=== PATIENT | male | born 1940 | race Caucasian/White ===

== ENCOUNTER 2017-10-10 16:21 | Inpatient (IN) | payer OTHER, MEDICAID ==
[~2017-10-10] VITALS: Ht 177.8 cm; Wt 80.7 kg
[2017-10-10] MEDS ORDERED: VANCOMYCIN IV 1,000 MG in IV DEXTROSE 5% 250 ML IV ONE (16:30)
[2017-10-10] MEDS ORDERED: METRONIDAZOLE 500 MG/NS 100ML 100 ML IV ONE ×2 (16:30→16:41)
[2017-10-10] MEDS ORDERED: IV NORMAL SALINE 1000 ML BAG IV ONE (16:30)
[2017-10-10] MEDS ORDERED: CEFEPIME HCL 1 G in IV DEXTROSE 5% 50 ML IV ONE (16:30)
[2017-10-10] MEDS ORDERED: CEFEPIME HCL 1 G VIAL ONE (16:40)
[2017-10-10] MEDS ORDERED: VANCOMYCIN IV 200 ML ONE (16:41)
[2017-10-10 17:09] LABS: BASOPHILS # (AUTO) 0.1 K/uL (0.0-8.0); BASOPHILS % (AUTO) 0.4 % (0.0-2.0); EOSINOPHILS # (AUTO) 0.8 K/uL (0.0-0.7); EOSINOPHILS % (AUTO) 4.5 % (0.0-7.0); HEMATOCRIT 39.3 % (36.7-47.1); HEMOGLOBIN 12.9 g/dL (12.5-16.3); LYMPHOCYTES # (AUTO) 3.8 K/uL (20.0-40.0); MEAN CORPUSCULAR HEMOGLOBIN 28.6 uug (23.8-33.4); MEAN CORPUSCULAR HGB CONC 33 g/dL (32.5-36.3); MEAN CORPUSCULAR VOLUME 87.2 fL (73.0-96.2); MONOCYTES # (AUTO) 1.6 K/uL (2.0-10.0); MONOCYTES % (AUTO) 9.1 % (0.0-11.0); NEUTROPHILS # (AUTO) 11.7 K/uL (1.8-8.9); PLATELET COUNT (AUTO) 222 K/uL (152-348)
[2017-10-10 17:32] LABS: CARBON DIOXIDE 33 mmol/L (21-32); CHLORIDE 99 mmol/L (98-107); CREATININE 1.2 mg/dL (0.6-1.3); GLUCOSE 100 mg/dL (74-106); UREA NITROGEN, BLOOD 12 mg/dL (7-18)
[2017-10-10 17:37] LABS: POTASSIUM 2.7 mmol/L (3.5-5.1)
[2017-10-10 17:45] LABS: ALANINE AMINOTRANSFERASE 19 U/L (16-63); ALKALINE PHOSPHATASE 78 U/L (50-136); ASPARTATE AMINOTRANSFERASE 22 U/L (15-37); BILIRUBIN,DIRECT 0.2 mg/dL (0.0-0.2); BILIRUBIN,TOTAL 0.6 mg/dL (0.2-1.0); TOTAL PROTEIN, SERUM 7.9 g/dL (6.4-8.2)
[2017-10-10] MEDS ORDERED: TRIA80OI TP (17:59)
[2017-10-10] MEDS ORDERED: OXYC-133 PO (17:59)
[2017-10-10] MEDS ORDERED: ASPI81TA31 PO (17:59)
[2017-10-10] MEDS ORDERED: LOSA100T15 PO (17:59)
[2017-10-10] MEDS ORDERED: TRAM50TA2 PO (17:59)
[2017-10-10] MEDS ORDERED: SENN-167 PO (17:59)
[2017-10-10] MEDS ORDERED: DULO60CA45 PO (17:59)
[2017-10-10] MEDS ORDERED: ISOS30TA6 PO (17:59)
[2017-10-10] MEDS ORDERED: AMLO5TAB2 PO (17:59)
[2017-10-10] MEDS ORDERED: ATOR40TA PO (17:59)
[2017-10-10] MEDS ORDERED: GABA-536 PO (17:59)
[2017-10-10] MEDS ORDERED: POTASSIUM CHLORIDE 20 MEQ TAB.PRT.SR ONE (18:27)
[2017-10-10] MEDS ORDERED: ONDANSETRON 4 MG/2 ML VIAL IV PRN (18:30)
[2017-10-10] MEDS ORDERED: POTASSIUM CHLORIDE 20 MEQ TAB.PRT.SR PO ONE (18:30)
[2017-10-10] MEDS ORDERED: MAGNESIUM HYDROXIDE 30 ML LIQUID UDC PO PRN (18:30)
[2017-10-10 20:30] VITALS: BP 156/90
[2017-10-10] MEDS: GABAPENTIN 400 MG CAPSULE PO SCH (21:38)
[2017-10-11 06:13] VITALS: BP 156/75
[2017-10-11 06:40] LABS: CARBON DIOXIDE 31 mmol/L (21-32); CHLORIDE 104 mmol/L (98-107); CREATININE 1.1 mg/dL (0.6-1.3); GLUCOSE 102 mg/dL (74-106); MAGNESIUM 1.6 mg/dL (1.8-2.4); PHOSPHOROUS 3.4 mg/dL (2.5-4.9); POTASSIUM 3.2 mmol/L (3.5-5.1); UREA NITROGEN, BLOOD 9 mg/dL (7-18)
[2017-10-11 06:46] LABS: BASOPHILS % (AUTO) 0.2 % (0.0-2.0); EOSINOPHILS # (AUTO) 1.2 K/uL (0.0-0.7); EOSINOPHILS % (AUTO) 6.6 % (0.0-7.0); HEMATOCRIT 36.7 % (36.7-47.1); HEMOGLOBIN 12.1 g/dL (12.5-16.3); LYMPHOCYTES # (AUTO) 2.7 K/uL (20.0-40.0); LYMPHOCYTES % (AUTO) 15.3 % (20.5-51.5); MEAN CORPUSCULAR HEMOGLOBIN 28.6 uug (23.8-33.4); MEAN CORPUSCULAR HGB CONC 33 g/dL (32.5-36.3); MEAN CORPUSCULAR VOLUME 86.3 fL (73.0-96.2); MONOCYTES # (AUTO) 1.7 K/uL (2.0-10.0); MONOCYTES % (AUTO) 9.7 % (0.0-11.0); NEUTROPHILS # (AUTO) 11.8 K/uL (1.8-8.9); NEUTROPHILS % (AUTO) 68.2 % (38.5-71.5); PLATELET COUNT (AUTO) 191 K/uL (152-348); RED BLOOD CELL COUNT(AUTO) 4.25 MIL/uL (4.06-5.63); WHITE BLOOD COUNT (AUTO) 17.4 K/uL (3.6-10.2)
[2017-10-11] MEDS: SENNOSIDES 1 TABLET PO SCH (08:49)
[2017-10-11] MEDS: TRAMADOL HCL 50 MG TABLET PO SCH ×3 (08:50→17:19)
[2017-10-11] MEDS: ASPIRIN 81 MG TAB.CHEW PO SCH (08:50)
[2017-10-11] MEDS: LOSARTAN POTASSIUM 50 MG TABLET PO SCH (08:50)
[2017-10-11] MEDS: AMLODIPINE 5 MG TABLET PO SCH (08:50)
[2017-10-11] MEDS: GABAPENTIN 400 MG CAPSULE PO SCH ×4 (08:50→20:52)
[2017-10-11] MEDS: ISOSORBIDE MONONITRATE 30 MG TAB.SR.24H PO SCH (08:51)
[2017-10-11] MEDS: DULOXETINE 60 MG CAPSULE.DR PO SCH (08:51)
[2017-10-11] MEDS: VANCOMYCIN IV 1 G in PREMIXED 0 EACH IV SCH ×2 (10:41→23:28)
[2017-10-11 11:01] VITALS: BP 148/82
[2017-10-11 11:56] LABS: *BILIRUBIN,URIN NEGATIVE (NEGATIVE); *BLOOD, URINE Trace-lysed (NEGATIVE); *CLARITY,URINE CLEAR (CLEAR); *COLOR,URINE YELLOW (YELLOW); *KETONES,URINE NEGATIVE (NEGATIVE); *PROTEIN,URINE NEGATIVE (NEGATIVE); LEUKOCYTE ESTERASE ,URINE NEGATIVE (NEGATIVE); NITRITE, URINE NEGATIVE (NEGATIVE); UGLUCOSE NEGATIVE (NEGATIVE)
[2017-10-11 12:03] LABS: BACTERIA,URINE FEW /HPF (NONE SEEN); RBC,URINE 0-3 /HPF (0-3); SQUAMOUS EPITHELIAL CELL,UR FEW /HPF (NONE SEEN)
[2017-10-11] MEDS ORDERED: POTASSIUM CHLORIDE 50 ML IV SCH (13:00)
[2017-10-11] MEDS ORDERED: OXYCODONE/APAP 5-325 MG TABLET PO PRN (14:00)
[2017-10-11] MEDS ORDERED: MAGNESIUM SULFATE/D5W 100 ML IV SCH (14:30)
[2017-10-11] MEDS: POTASSIUM CHLORIDE 10 MEQ in IV NORMAL SALINE 50 ML IV SCH ×4 (14:56→18:36)
[2017-10-11 15:17] VITALS: BP 128/64
[2017-10-11] MEDS: ATORVASTATIN 40 MG TABLET PO SCH (17:19)
[2017-10-11] MEDS: MAGNESIUM SULFATE/D5W 100 ML IV SCH ×2 (19:59→21:02)
[2017-10-12 05:08] VITALS: BP 148/79
[2017-10-12 07:47] LABS: CARBON DIOXIDE 31 mmol/L (21-32); CHLORIDE 104 mmol/L (98-107); CREATININE 1.1 mg/dL (0.6-1.3); GLUCOSE 99 mg/dL (74-106); MAGNESIUM 2.2 mg/dL (1.8-2.4); UREA NITROGEN, BLOOD 11 mg/dL (7-18)
[2017-10-12] MEDS: ASPIRIN 81 MG TAB.CHEW PO SCH (08:08)
[2017-10-12] MEDS: ISOSORBIDE MONONITRATE 30 MG TAB.SR.24H PO SCH (08:08)
[2017-10-12] MEDS: AMLODIPINE 5 MG TABLET PO SCH (08:08)
[2017-10-12] MEDS: SENNOSIDES 1 TABLET PO SCH (08:08)
[2017-10-12] MEDS: LOSARTAN POTASSIUM 50 MG TABLET PO SCH (08:08)
[2017-10-12] MEDS: DULOXETINE 60 MG CAPSULE.DR PO SCH (08:09)
[2017-10-12] MEDS: TRAMADOL HCL 50 MG TABLET PO SCH ×3 (08:09→17:00)
[2017-10-12] MEDS: GABAPENTIN 400 MG CAPSULE PO SCH ×4 (08:09→21:38)
[2017-10-12] MEDS ORDERED: POTASSIUM CHLORIDE 20 MEQ TAB.PRT.SR PO ONE (10:15)
[2017-10-12 10:37] LABS: BASOPHILS # (AUTO) 0.1 K/uL (0.0-8.0); BASOPHILS % (AUTO) 0.3 % (0.0-2.0); EOSINOPHILS # (AUTO) 1.8 K/uL (0.0-0.7); EOSINOPHILS % (AUTO) 10.2 % (0.0-7.0); HEMATOCRIT 35.5 % (36.7-47.1); HEMOGLOBIN 11.7 g/dL (12.5-16.3); LYMPHOCYTES % (AUTO) 16.8 % (20.5-51.5); MEAN CORPUSCULAR HEMOGLOBIN 28.6 uug (23.8-33.4); MEAN CORPUSCULAR HGB CONC 33 g/dL (32.5-36.3); MONOCYTES # (AUTO) 1.9 K/uL (2.0-10.0); MONOCYTES % (AUTO) 10.4 % (0.0-11.0); NEUTROPHILS # (AUTO) 11.2 K/uL (1.8-8.9); NEUTROPHILS % (AUTO) 62.3 % (38.5-71.5); PLATELET COUNT (AUTO) 198 K/uL (152-348); RED BLOOD CELL COUNT(AUTO) 4.08 MIL/uL (4.06-5.63); WHITE BLOOD COUNT (AUTO) 17.9 K/uL (3.6-10.2)
[2017-10-12 11:34] VITALS: BP 132/88
[2017-10-12] MEDS: PIPERACILLIN/TAZOBACTAM/D5W 50 ML IV SCH ×2 (13:45→19:54)
[2017-10-12] MEDS: PERMETHRIN 5% CREAM 60 GM TUBE TP ONE ×2 (14:00→18:00)
[2017-10-12] MEDS ORDERED: HYDROMORPHONE 1 MG/1 ML DISP.SYRIN IV PRN (14:00)
[2017-10-12] MEDS: VANCOMYCIN IV 1 G in PREMIXED 0 EACH IV SCH (14:00)
[2017-10-12] MEDS ORDERED: MORPHINE SULFATE 4 MG/1 ML DISP.SYRIN IV STA (14:01)
[2017-10-12] MEDS ORDERED: MORPHINE SULFATE 4 MG/1 ML DISP.SYRIN IV PRN (14:15)
[2017-10-12] MEDS ORDERED: LIDOCAINE 1%-EPI 1:100,000 20 ML VIAL TP ONE (14:30)
[2017-10-12] MEDS ORDERED: LORAZEPAM 1 MG TABLET PO PRN (14:45)
[2017-10-12] MEDS: ATORVASTATIN 40 MG TABLET PO SCH (17:53)
[2017-10-12 20:14] VITALS: BP 125/67
[2017-10-13] MEDS: PIPERACILLIN/TAZOBACTAM/D5W 50 ML IV SCH ×4 (01:35→20:16)
[2017-10-13] MEDS: VANCOMYCIN IV 1 G in PREMIXED 0 EACH IV SCH ×2 (04:30→17:52)
[2017-10-13 05:42] VITALS: BP 152/78
[2017-10-13] MEDS: PANTOPRAZOLE SODIUM 40 MG TABLET.DR PO SCH (06:29)
[2017-10-13 07:32] LABS: THYROID STIMULATING HORMONE 2.139 mIU/mL (0.358-3.740)
[2017-10-13 07:48] LABS: ALANINE AMINOTRANSFERASE 17 U/L (16-63); ALKALINE PHOSPHATASE 60 U/L (50-136); ASPARTATE AMINOTRANSFERASE 24 U/L (15-37); BASOPHILS # (AUTO) 0.1 K/uL (0.0-8.0); BASOPHILS % (AUTO) 0.5 % (0.0-2.0); BILIRUBIN,TOTAL 0.6 mg/dL (0.2-1.0); CARBON DIOXIDE 33 mmol/L (21-32); CHLORIDE 103 mmol/L (98-107); CHOLESTEROL 108 mg/dL (<200); CREATININE 1.1 mg/dL (0.6-1.3); EOSINOPHILS # (AUTO) 1.5 K/uL (0.0-0.7); EOSINOPHILS % (AUTO) 11.3 % (0.0-7.0); GLUCOSE 128 mg/dL (74-106); HDL CHOLESTEROL 33 mg/dL (40-60); HEMOGLOBIN 11.7 g/dL (12.5-16.3); LYMPHOCYTES # (AUTO) 2.7 K/uL (20.0-40.0); LYMPHOCYTES % (AUTO) 19.7 % (20.5-51.5); MEAN CORPUSCULAR HEMOGLOBIN 28.9 uug (23.8-33.4); MEAN CORPUSCULAR HGB CONC 33 g/dL (32.5-36.3); MEAN CORPUSCULAR VOLUME 86.5 fL (73.0-96.2); MONOCYTES # (AUTO) 1.2 K/uL (2.0-10.0); NEUTROPHILS # (AUTO) 8.1 K/uL (1.8-8.9); NEUTROPHILS % (AUTO) 59.5 % (38.5-71.5); PHOSPHOROUS 3.9 mg/dL (2.5-4.9); PLATELET COUNT (AUTO) 206 K/uL (152-348); POTASSIUM 3.6 mmol/L (3.5-5.1); RED BLOOD CELL COUNT(AUTO) 4.05 MIL/uL (4.06-5.63); TOTAL PROTEIN, SERUM 6.6 g/dL (6.4-8.2); TRIGLYCERIDES 89 MG/DL (30-150); UREA NITROGEN, BLOOD 11 mg/dL (7-18); WHITE BLOOD COUNT (AUTO) 13.7 K/uL (3.6-10.2)
[2017-10-13] MEDS: DULOXETINE 60 MG CAPSULE.DR PO SCH (08:57)
[2017-10-13] MEDS: SENNOSIDES 1 TABLET PO SCH (08:57)
[2017-10-13] MEDS: ASPIRIN 81 MG TAB.CHEW PO SCH (08:57)
[2017-10-13] MEDS: GABAPENTIN 400 MG CAPSULE PO SCH ×4 (08:58→20:16)
[2017-10-13] MEDS: TRAMADOL HCL 50 MG TABLET PO SCH ×3 (09:00→18:03)
[2017-10-13] MEDS: AMLODIPINE 5 MG TABLET PO SCH (09:01)
[2017-10-13] MEDS: LOSARTAN POTASSIUM 50 MG TABLET PO SCH (09:02)
[2017-10-13] MEDS: ISOSORBIDE MONONITRATE 30 MG TAB.SR.24H PO SCH (09:02)
[2017-10-13 11:24] VITALS: BP 108/70
[2017-10-13] MEDS ORDERED: LORAZEPAM 2 MG/1 ML VIAL IV PRN (12:00)
[2017-10-13 15:32] VITALS: BP 123/70
[2017-10-13] MEDS: ATORVASTATIN 40 MG TABLET PO SCH (17:52)
[2017-10-13 20:00] VITALS: BP 125/73
[2017-10-13] MEDS: LACTOBACILLUS RHAMNOSUS GG 1 EACH CAPSULE PO SCH (20:16)
[2017-10-14] MEDS: PIPERACILLIN/TAZOBACTAM/D5W 50 ML IV SCH ×4 (02:00→20:46)
[2017-10-14 06:00] VITALS: BP 119/62
[2017-10-14] MEDS: PANTOPRAZOLE SODIUM 40 MG TABLET.DR PO SCH (06:17)
[2017-10-14] MEDS: LACTOBACILLUS RHAMNOSUS GG 1 EACH CAPSULE PO SCH ×2 (08:57→20:46)
[2017-10-14] MEDS: SENNOSIDES 1 TABLET PO SCH (08:57)
[2017-10-14] MEDS: DULOXETINE 60 MG CAPSULE.DR PO SCH (08:57)
[2017-10-14] MEDS: GABAPENTIN 400 MG CAPSULE PO SCH ×4 (08:58→20:46)
[2017-10-14] MEDS: TRAMADOL HCL 50 MG TABLET PO SCH ×3 (08:59→17:08)
[2017-10-14] MEDS: VANCOMYCIN IV 1 G in PREMIXED 0 EACH IV SCH ×2 (08:59→22:53)
[2017-10-14] MEDS: LOSARTAN POTASSIUM 50 MG TABLET PO SCH (09:01)
[2017-10-14] MEDS: AMLODIPINE 5 MG TABLET PO SCH (09:01)
[2017-10-14] MEDS: ISOSORBIDE MONONITRATE 30 MG TAB.SR.24H PO SCH (09:02)
[2017-10-14] MEDS: ASPIRIN 81 MG TAB.CHEW PO SCH (09:02)
[2017-10-14 11:56] VITALS: BP 128/73
[2017-10-14] MEDS ORDERED: Oxycodone/Apap 5-325 Mg PO (15:13)
[2017-10-14] MEDS ORDERED: PIPE3.3711 IV (15:13)
[2017-10-14] MEDS ORDERED: TRIA15OI10 TP (15:13)
[2017-10-14] MEDS ORDERED: ACET325T53 PO (15:13)
[2017-10-14] MEDS ORDERED: RXVAN XX (15:13)
[2017-10-14] MEDS ORDERED: PANT40TA2 PO (15:13)
[2017-10-14] MEDS ORDERED: TRAM50TA2 PO (15:13)
[2017-10-14] MEDS ORDERED: LACT1CAP57 PO (15:13)
[2017-10-14] MEDS ORDERED: MAGN400O6 PO (15:13)
[2017-10-14] MEDS ORDERED: PERM60CR4 TP (15:29)
[2017-10-14 15:32] VITALS: BP 131/62
[2017-10-14] MEDS: ATORVASTATIN 40 MG TABLET PO SCH (17:11)
[2017-10-14 20:00] VITALS: BP 114/78
[2017-10-15] MEDS: PIPERACILLIN/TAZOBACTAM/D5W 50 ML IV SCH ×4 (00:45→18:39)
[2017-10-15 04:00] VITALS: BP 149/79
[2017-10-15] MEDS: PANTOPRAZOLE SODIUM 40 MG TABLET.DR PO SCH (06:16)
[2017-10-15 07:17] LABS: ALANINE AMINOTRANSFERASE 28 U/L (16-63); ALKALINE PHOSPHATASE 52 U/L (50-136); ASPARTATE AMINOTRANSFERASE 25 U/L (15-37); BILIRUBIN,TOTAL 0.4 mg/dL (0.2-1.0); CARBON DIOXIDE 28 mmol/L (21-32); CHLORIDE 107 mmol/L (98-107); CREATININE 1.1 mg/dL (0.6-1.3); GLUCOSE 100 mg/dL (74-106); PHOSPHOROUS 4.1 mg/dL (2.5-4.9); POTASSIUM 3.1 mmol/L (3.5-5.1); TOTAL PROTEIN, SERUM 6.9 g/dL (6.4-8.2); UREA NITROGEN, BLOOD 10 mg/dL (7-18)
[2017-10-15 07:20] LABS: BASOPHILS # (AUTO) 0.1 K/uL (0.0-8.0); BASOPHILS % (AUTO) 0.9 % (0.0-2.0); EOSINOPHILS # (AUTO) 1.5 K/uL (0.0-0.7); EOSINOPHILS % (AUTO) 12.1 % (0.0-7.0); HEMATOCRIT 34.7 % (36.7-47.1); HEMOGLOBIN 11.5 g/dL (12.5-16.3); LYMPHOCYTES # (AUTO) 3.5 K/uL (20.0-40.0); LYMPHOCYTES % (AUTO) 27.8 % (20.5-51.5); MEAN CORPUSCULAR HEMOGLOBIN 28.6 uug (23.8-33.4); MEAN CORPUSCULAR HGB CONC 33 g/dL (32.5-36.3); MONOCYTES # (AUTO) 1.1 K/uL (2.0-10.0); MONOCYTES % (AUTO) 8.6 % (0.0-11.0); NEUTROPHILS # (AUTO) 6.4 K/uL (1.8-8.9); NEUTROPHILS % (AUTO) 50.6 % (38.5-71.5); PLATELET COUNT (AUTO) 255 K/uL (152-348); RED BLOOD CELL COUNT(AUTO) 4.04 MIL/uL (4.06-5.63); WHITE BLOOD COUNT (AUTO) 12.6 K/uL (3.6-10.2)
[2017-10-15] MEDS: DULOXETINE 60 MG CAPSULE.DR PO SCH (08:36)
[2017-10-15] MEDS: SENNOSIDES 1 TABLET PO SCH (08:36)
[2017-10-15] MEDS: GABAPENTIN 400 MG CAPSULE PO SCH ×4 (08:36→20:50)
[2017-10-15] MEDS: LACTOBACILLUS RHAMNOSUS GG 1 EACH CAPSULE PO SCH ×2 (08:36→20:50)
[2017-10-15] MEDS: TRAMADOL HCL 50 MG TABLET PO SCH ×3 (08:37→17:07)
[2017-10-15] MEDS: ASPIRIN 81 MG TAB.CHEW PO SCH (08:38)
[2017-10-15] MEDS: ISOSORBIDE MONONITRATE 30 MG TAB.SR.24H PO SCH (08:44)
[2017-10-15] MEDS: LOSARTAN POTASSIUM 50 MG TABLET PO SCH (08:45)
[2017-10-15] MEDS: AMLODIPINE 5 MG TABLET PO SCH (08:45)
[2017-10-15] MEDS: VANCOMYCIN IV 1 G in PREMIXED 0 EACH IV SCH ×2 (10:29→22:02)
[2017-10-15] MEDS ORDERED: POTASSIUM CHLORIDE 20 MEQ TAB.PRT.SR PO ONE (10:45)
[2017-10-15 10:58] VITALS: BP 131/60
[2017-10-15 14:56] VITALS: BP 130/60
[2017-10-15] MEDS: ATORVASTATIN 40 MG TABLET PO SCH (17:07)
[2017-10-15 20:00] VITALS: BP 143/78
[2017-10-16] MEDS: PIPERACILLIN/TAZOBACTAM/D5W 50 ML IV SCH ×4 (01:05→20:06)
[2017-10-16 05:44] LABS: BASOPHILS # (AUTO) 0.1 K/uL (0.0-8.0); BASOPHILS % (AUTO) 0.9 % (0.0-2.0); EOSINOPHILS # (AUTO) 1.4 K/uL (0.0-0.7); EOSINOPHILS % (AUTO) 12.1 % (0.0-7.0); HEMATOCRIT 36.2 % (36.7-47.1); HEMOGLOBIN 11.9 g/dL (12.5-16.3); LYMPHOCYTES # (AUTO) 3.7 K/uL (20.0-40.0); LYMPHOCYTES % (AUTO) 31.6 % (20.5-51.5); MEAN CORPUSCULAR HEMOGLOBIN 28.3 uug (23.8-33.4); MEAN CORPUSCULAR HGB CONC 33 g/dL (32.5-36.3); MEAN CORPUSCULAR VOLUME 86.3 fL (73.0-96.2); MONOCYTES # (AUTO) 1.1 K/uL (2.0-10.0); MONOCYTES % (AUTO) 9.3 % (0.0-11.0); NEUTROPHILS # (AUTO) 5.4 K/uL (1.8-8.9); NEUTROPHILS % (AUTO) 46.1 % (38.5-71.5); PLATELET COUNT (AUTO) 262 K/uL (152-348); WHITE BLOOD COUNT (AUTO) 11.8 K/uL (3.6-10.2)
[2017-10-16 06:03] LABS: ALANINE AMINOTRANSFERASE 27 U/L (16-63); ALKALINE PHOSPHATASE 51 U/L (50-136); ASPARTATE AMINOTRANSFERASE 24 U/L (15-37); BILIRUBIN,TOTAL 0.4 mg/dL (0.2-1.0); CARBON DIOXIDE 29 mmol/L (21-32); CHLORIDE 104 mmol/L (98-107); CREATININE 1.1 mg/dL (0.6-1.3); GLUCOSE 91 mg/dL (74-106); PHOSPHOROUS 3.8 mg/dL (2.5-4.9); UREA NITROGEN, BLOOD 12 mg/dL (7-18)
[2017-10-16] MEDS: PANTOPRAZOLE SODIUM 40 MG TABLET.DR PO SCH (06:38)
[2017-10-16 06:46] VITALS: BP 158/83
[2017-10-16] MEDS: DULOXETINE 60 MG CAPSULE.DR PO SCH (08:50)
[2017-10-16] MEDS: GABAPENTIN 400 MG CAPSULE PO SCH ×4 (08:50→21:13)
[2017-10-16] MEDS: ASPIRIN 81 MG TAB.CHEW PO SCH (08:50)
[2017-10-16] MEDS: LACTOBACILLUS RHAMNOSUS GG 1 EACH CAPSULE PO SCH ×2 (08:50→21:13)
[2017-10-16] MEDS: ACETAMINOPHEN 325 MG TABLET PO PRN (08:50)
[2017-10-16] MEDS: AMLODIPINE 5 MG TABLET PO SCH (08:51)
[2017-10-16] MEDS: ISOSORBIDE MONONITRATE 30 MG TAB.SR.24H PO SCH (08:51)
[2017-10-16] MEDS: LOSARTAN POTASSIUM 50 MG TABLET PO SCH (08:51)
[2017-10-16] MEDS: Z GUARD REMEDY PASTE 57 GM TUBE TOP PRN (08:52)
[2017-10-16] MEDS: TRIAMCINOLONE ACET 0.025% OINT 15 GM TUBE TP PRN (08:52)
[2017-10-16] MEDS: TRAMADOL HCL 50 MG TABLET PO SCH ×3 (09:00→16:56)
[2017-10-16] MEDS: SENNOSIDES 1 TABLET PO SCH (09:00)
[2017-10-16] MEDS ORDERED: POTASSIUM CHLORIDE 20 MEQ TAB.PRT.SR PO ONE (10:45)
[2017-10-16 11:17] VITALS: BP 137/68
[2017-10-16] MEDS: CLINDAMYCIN HCL 300 MG CAPSULE PO SCH ×2 (13:37→21:13)
[2017-10-16 15:11] VITALS: BP 135/70
[2017-10-16] MEDS: ATORVASTATIN 40 MG TABLET PO SCH (16:56)
[2017-10-16 20:52] VITALS: BP 110/68
[2017-10-17] MEDS: PIPERACILLIN/TAZOBACTAM/D5W 50 ML IV SCH ×3 (01:41→13:43)
[2017-10-17 04:00] VITALS: BP 134/65
[2017-10-17] MEDS: CLINDAMYCIN HCL 300 MG CAPSULE PO SCH ×2 (05:21→13:43)
[2017-10-17] MEDS: PANTOPRAZOLE SODIUM 40 MG TABLET.DR PO SCH (06:04)
[2017-10-17] MEDS: DULOXETINE 60 MG CAPSULE.DR PO SCH (08:25)
[2017-10-17] MEDS: LACTOBACILLUS RHAMNOSUS GG 1 EACH CAPSULE PO SCH ×2 (08:25→20:55)
[2017-10-17] MEDS: ASPIRIN 81 MG TAB.CHEW PO SCH (08:25)
[2017-10-17] MEDS: TRAMADOL HCL 50 MG TABLET PO SCH ×3 (08:25→17:13)
[2017-10-17] MEDS: GABAPENTIN 400 MG CAPSULE PO SCH ×4 (08:25→20:57)
[2017-10-17] MEDS: AMLODIPINE 5 MG TABLET PO SCH (08:26)
[2017-10-17] MEDS: ISOSORBIDE MONONITRATE 30 MG TAB.SR.24H PO SCH (08:26)
[2017-10-17] MEDS: SENNOSIDES 1 TABLET PO SCH (08:26)
[2017-10-17] MEDS: LOSARTAN POTASSIUM 50 MG TABLET PO SCH (08:26)
[2017-10-17] MEDS: Z GUARD REMEDY PASTE 57 GM TUBE TOP PRN (08:27)
[2017-10-17] MEDS: TRIAMCINOLONE ACET 0.025% OINT 15 GM TUBE TP PRN (08:27)
[2017-10-17 09:14] LABS: ALANINE AMINOTRANSFERASE 26 U/L (16-63); ALKALINE PHOSPHATASE 54 U/L (50-136); ASPARTATE AMINOTRANSFERASE 26 U/L (15-37); CARBON DIOXIDE 29 mmol/L (21-32); CHLORIDE 107 mmol/L (98-107); CREATININE 1.5 mg/dL (0.6-1.3); GLUCOSE 137 mg/dL (74-106); MAGNESIUM 2.2 mg/dL (1.8-2.4); PHOSPHOROUS 3.2 mg/dL (2.5-4.9); POTASSIUM 3.7 mmol/L (3.5-5.1); UREA NITROGEN, BLOOD 15 mg/dL (7-18)
[2017-10-17 09:18] LABS: BASOPHILS # (AUTO) 0.1 K/uL (0.0-8.0); BASOPHILS % (AUTO) 0.7 % (0.0-2.0); EOSINOPHILS # (AUTO) 1.1 K/uL (0.0-0.7); EOSINOPHILS % (AUTO) 8.5 % (0.0-7.0); HEMATOCRIT 37.2 % (36.7-47.1); HEMOGLOBIN 12.1 g/dL (12.5-16.3); LYMPHOCYTES # (AUTO) 2.8 K/uL (20.0-40.0); LYMPHOCYTES % (AUTO) 22.6 % (20.5-51.5); MEAN CORPUSCULAR HEMOGLOBIN 28.3 uug (23.8-33.4); MEAN CORPUSCULAR HGB CONC 33 g/dL (32.5-36.3); MEAN CORPUSCULAR VOLUME 86.9 fL (73.0-96.2); MONOCYTES # (AUTO) 0.9 K/uL (2.0-10.0); MONOCYTES % (AUTO) 6.8 % (0.0-11.0); NEUTROPHILS # (AUTO) 7.7 K/uL (1.8-8.9); NEUTROPHILS % (AUTO) 61.4 % (38.5-71.5); PLATELET COUNT (AUTO) 278 K/uL (152-348); RED BLOOD CELL COUNT(AUTO) 4.29 MIL/uL (4.06-5.63); WHITE BLOOD COUNT (AUTO) 12.5 K/uL (3.6-10.2)
[2017-10-17 09:26] LABS: BILIRUBIN,TOTAL 0.2 mg/dL (0.1-1.0)
[2017-10-17 11:34] VITALS: BP 139/72
[2017-10-17 15:34] VITALS: BP 128/78
[2017-10-17] MEDS: ATORVASTATIN 40 MG TABLET PO SCH (17:13)
[2017-10-17 18:53] LABS: *BILIRUBIN,URIN NEGATIVE (NEGATIVE); *BLOOD, URINE NEGATIVE (NEGATIVE); *CLARITY,URINE CLEAR (CLEAR); *COLOR,URINE YELLOW (YELLOW); *KETONES,URINE TRACE (NEGATIVE); *PROTEIN,URINE 1+ (NEGATIVE); *UROBILINOGEN,URINE 0.2 E.U./dl (NORMAL); LEUKOCYTE ESTERASE ,URINE 2+ (NEGATIVE); NITRITE, URINE NEGATIVE (NEGATIVE); UGLUCOSE NEGATIVE (NEGATIVE)
[2017-10-17 19:01] LABS: *CREATININE,URINE 232.4 mg/dL (30-125); *URINE TOTAL PROTEIN RANDOM 40.8 mg/dL (<150/24HR)
[2017-10-17 19:11] LABS: RBC,URINE 0-3 /HPF (0-3)
[2017-10-17 19:12] LABS: BACTERIA,URINE FEW /HPF (NONE SEEN); SQUAMOUS EPITHELIAL CELL,UR FEW /HPF (NONE SEEN); YEAST,URINE RARE /HPF (NONE SEEN)
[2017-10-17 20:19] VITALS: BP 129/74
[2017-10-17] MEDS: SULFAMETH/TRIMETH 800/160 MG TABLET PO SCH (20:55)
[2017-10-18 05:47] VITALS: BP 140/79
[2017-10-18] MEDS: PANTOPRAZOLE SODIUM 40 MG TABLET.DR PO SCH (06:21)
[2017-10-18] MEDS: ASPIRIN 81 MG TAB.CHEW PO SCH (08:25)
[2017-10-18] MEDS: DULOXETINE 60 MG CAPSULE.DR PO SCH (08:25)
[2017-10-18] MEDS: SULFAMETH/TRIMETH 800/160 MG TABLET PO SCH ×2 (08:25→20:45)
[2017-10-18] MEDS: ISOSORBIDE MONONITRATE 30 MG TAB.SR.24H PO SCH (08:25)
[2017-10-18] MEDS: LACTOBACILLUS RHAMNOSUS GG 1 EACH CAPSULE PO SCH ×2 (08:25→20:45)
[2017-10-18] MEDS: AMLODIPINE 5 MG TABLET PO SCH (08:26)
[2017-10-18] MEDS: GABAPENTIN 400 MG CAPSULE PO SCH ×4 (08:26→20:45)
[2017-10-18] MEDS: SENNOSIDES 1 TABLET PO SCH (08:26)
[2017-10-18] MEDS: TRAMADOL HCL 50 MG TABLET PO SCH ×3 (08:26→16:29)
[2017-10-18 11:25] VITALS: BP 134/76
[2017-10-18] MEDS ORDERED: FLUCONAZOLE 400MG /NS 200ML IV 400 MG in PREMIXED 1 EACH IV SCH (14:45)
[2017-10-18 15:02] VITALS: BP 144/69
[2017-10-18] MEDS: FLUCONAZOLE 200 MG/NS 100ML IV 200 MG in PREMIXED 1 EACH IV SCH (16:41)
[2017-10-18] MEDS: ATORVASTATIN 40 MG TABLET PO SCH (17:17)
[2017-10-18 20:10] VITALS: BP 154/86
[2017-10-18] MEDS: Z GUARD REMEDY PASTE 57 GM TUBE TOP PRN (20:47)
[2017-10-19 04:00] VITALS: BP 131/76
[2017-10-19] MEDS: PANTOPRAZOLE SODIUM 40 MG TABLET.DR PO SCH (06:00)
[2017-10-19 08:08] LABS: BASOPHILS # (AUTO) 0.1 K/uL (0.0-8.0); BASOPHILS % (AUTO) 0.7 % (0.0-2.0); EOSINOPHILS # (AUTO) 0.8 K/uL (0.0-0.7); EOSINOPHILS % (AUTO) 6.5 % (0.0-7.0); HEMATOCRIT 37.5 % (36.7-47.1); HEMOGLOBIN 12.4 g/dL (12.5-16.3); LYMPHOCYTES # (AUTO) 3.9 K/uL (20.0-40.0); LYMPHOCYTES % (AUTO) 29.6 % (20.5-51.5); MEAN CORPUSCULAR HEMOGLOBIN 28.5 uug (23.8-33.4); MEAN CORPUSCULAR HGB CONC 33 g/dL (32.5-36.3); MONOCYTES # (AUTO) 1.1 K/uL (2.0-10.0); MONOCYTES % (AUTO) 8.1 % (0.0-11.0); NEUTROPHILS # (AUTO) 7.2 K/uL (1.8-8.9); NEUTROPHILS % (AUTO) 55.1 % (38.5-71.5); PLATELET COUNT (AUTO) 291 K/uL (152-348); RED BLOOD CELL COUNT(AUTO) 4.36 MIL/uL (4.06-5.63); WHITE BLOOD COUNT (AUTO) 13.1 K/uL (3.6-10.2)
[2017-10-19] MEDS: GABAPENTIN 400 MG CAPSULE PO SCH ×4 (08:55→20:29)
[2017-10-19] MEDS: LACTOBACILLUS RHAMNOSUS GG 1 EACH CAPSULE PO SCH ×2 (08:55→20:29)
[2017-10-19] MEDS: ASPIRIN 81 MG TAB.CHEW PO SCH (08:55)
[2017-10-19] MEDS: SULFAMETH/TRIMETH 800/160 MG TABLET PO SCH ×2 (08:55→20:29)
[2017-10-19] MEDS: DULOXETINE 60 MG CAPSULE.DR PO SCH (08:55)
[2017-10-19] MEDS: SENNOSIDES 1 TABLET PO SCH (08:55)
[2017-10-19] MEDS: AMLODIPINE 5 MG TABLET PO SCH (08:56)
[2017-10-19] MEDS: TRAMADOL HCL 50 MG TABLET PO SCH ×3 (08:57→17:09)
[2017-10-19] MEDS: ISOSORBIDE MONONITRATE 30 MG TAB.SR.24H PO SCH (08:59)
[2017-10-19 09:02] LABS: ALANINE AMINOTRANSFERASE 24 U/L (16-63); ALKALINE PHOSPHATASE 56 U/L (50-136); ASPARTATE AMINOTRANSFERASE 28 U/L (15-37); BILIRUBIN,TOTAL 0.4 mg/dL (0.2-1.0); CARBON DIOXIDE 27 mmol/L (21-32); CHLORIDE 107 mmol/L (98-107); CREATININE 1.3 mg/dL (0.6-1.3); GLUCOSE 99 mg/dL (74-106); PHOSPHOROUS 3.9 mg/dL (2.5-4.9); POTASSIUM 3.4 mmol/L (3.5-5.1); TOTAL PROTEIN, SERUM 7.2 g/dL (6.4-8.2); UREA NITROGEN, BLOOD 13 mg/dL (7-18)
[2017-10-19 11:29] VITALS: BP 126/69
[2017-10-19 16:10] VITALS: BP 119/74
[2017-10-19] MEDS: FLUCONAZOLE 200 MG/NS 100ML IV 200 MG in PREMIXED 1 EACH IV SCH (16:24)
[2017-10-19] MEDS: ATORVASTATIN 40 MG TABLET PO SCH (17:09)
[2017-10-19] MEDS ORDERED: PERMETHRIN 5% CREAM 60 GM TUBE TP ONE (18:00)
[2017-10-19 20:28] VITALS: BP 135/81
[2017-10-20 04:23] VITALS: BP 154/77
[2017-10-20] MEDS: PANTOPRAZOLE SODIUM 40 MG TABLET.DR PO SCH (06:13)
[2017-10-20 06:54] LABS: BASOPHILS # (AUTO) 0.1 K/uL (0.0-8.0); BASOPHILS % (AUTO) 0.6 % (0.0-2.0); EOSINOPHILS % (AUTO) 8.4 % (0.0-7.0); HEMOGLOBIN 12.2 g/dL (12.5-16.3); LYMPHOCYTES # (AUTO) 4.3 K/uL (20.0-40.0); LYMPHOCYTES % (AUTO) 35.8 % (20.5-51.5); MEAN CORPUSCULAR HEMOGLOBIN 28.6 uug (23.8-33.4); MEAN CORPUSCULAR HGB CONC 33 g/dL (32.5-36.3); MEAN CORPUSCULAR VOLUME 86.6 fL (73.0-96.2); MONOCYTES % (AUTO) 8.3 % (0.0-11.0); NEUTROPHILS # (AUTO) 5.7 K/uL (1.8-8.9); NEUTROPHILS % (AUTO) 46.9 % (38.5-71.5); PLATELET COUNT (AUTO) 282 K/uL (152-348); RED BLOOD CELL COUNT(AUTO) 4.27 MIL/uL (4.06-5.63); WHITE BLOOD COUNT (AUTO) 12.1 K/uL (3.6-10.2)
[2017-10-20 07:05] LABS: CARBON DIOXIDE 27 mmol/L (21-32); CHLORIDE 106 mmol/L (98-107); CREATININE 1.4 mg/dL (0.6-1.3); GLUCOSE 92 mg/dL (74-106); PHOSPHOROUS 4.2 mg/dL (2.5-4.9); POTASSIUM 3.4 mmol/L (3.5-5.1); UREA NITROGEN, BLOOD 19 mg/dL (7-18)
[2017-10-20] MEDS: TRAMADOL HCL 50 MG TABLET PO SCH ×3 (08:14→17:02)
[2017-10-20] MEDS: ASPIRIN 81 MG TAB.CHEW PO SCH (08:14)
[2017-10-20] MEDS: LACTOBACILLUS RHAMNOSUS GG 1 EACH CAPSULE PO SCH ×2 (08:14→20:27)
[2017-10-20] MEDS: SULFAMETH/TRIMETH 800/160 MG TABLET PO SCH ×2 (08:15→20:26)
[2017-10-20] MEDS: GABAPENTIN 400 MG CAPSULE PO SCH ×4 (08:15→20:26)
[2017-10-20] MEDS: DULOXETINE 60 MG CAPSULE.DR PO SCH (08:15)
[2017-10-20] MEDS: SENNOSIDES 1 TABLET PO SCH (08:15)
[2017-10-20] MEDS: ISOSORBIDE MONONITRATE 30 MG TAB.SR.24H PO SCH (08:19)
[2017-10-20] MEDS: AMLODIPINE 5 MG TABLET PO SCH (08:20)
[2017-10-20 11:25] VITALS: BP 138/75
[2017-10-20] MEDS ORDERED: POTASSIUM CHLORIDE 20 MEQ TAB.PRT.SR PO ONE (15:15)
[2017-10-20] MEDS: FLUCONAZOLE 200 MG/NS 100ML IV 200 MG in PREMIXED 1 EACH IV SCH (15:34)
[2017-10-20 15:48] VITALS: BP 122/73
[2017-10-20] MEDS: ATORVASTATIN 40 MG TABLET PO SCH (17:02)
[2017-10-20 20:23] VITALS: BP 119/83
[2017-10-21 04:00] VITALS: BP 128/78
[2017-10-21] MEDS: PANTOPRAZOLE SODIUM 40 MG TABLET.DR PO SCH (06:11)
[2017-10-21 06:39] LABS: CARBON DIOXIDE 27 mmol/L (21-32); CHLORIDE 104 mmol/L (98-107); CREATININE 1.4 mg/dL (0.6-1.3); GLUCOSE 94 mg/dL (74-106); POTASSIUM 3.6 mmol/L (3.5-5.1); UREA NITROGEN, BLOOD 19 mg/dL (7-18)
[2017-10-21 09:30] VITALS: BP 132/79
[2017-10-21] MEDS: LACTOBACILLUS RHAMNOSUS GG 1 EACH CAPSULE PO SCH ×2 (09:31→21:21)
[2017-10-21] MEDS: SENNOSIDES 1 TABLET PO SCH (09:31)
[2017-10-21] MEDS: DULOXETINE 60 MG CAPSULE.DR PO SCH (09:31)
[2017-10-21] MEDS: AMLODIPINE 5 MG TABLET PO SCH (09:32)
[2017-10-21] MEDS: ISOSORBIDE MONONITRATE 30 MG TAB.SR.24H PO SCH (09:32)
[2017-10-21] MEDS: GABAPENTIN 400 MG CAPSULE PO SCH ×4 (09:32→21:21)
[2017-10-21] MEDS: TRAMADOL HCL 50 MG TABLET PO SCH ×3 (09:33→16:48)
[2017-10-21] MEDS: ASPIRIN 81 MG TAB.CHEW PO SCH (09:38)
[2017-10-21] MEDS: SULFAMETH/TRIMETH 800/160 MG TABLET PO SCH ×2 (09:38→21:22)
[2017-10-21] MEDS ORDERED: POTASSIUM CHLORIDE 20 MEQ TAB.PRT.SR PO ONE (11:30)
[2017-10-21 11:45] VITALS: BP 104/66
[2017-10-21 16:05] VITALS: BP 124/69
[2017-10-21] MEDS: FLUCONAZOLE 200 MG/NS 100ML IV 200 MG in PREMIXED 1 EACH IV SCH (16:48)
[2017-10-21] MEDS: ATORVASTATIN 40 MG TABLET PO SCH (16:53)
[2017-10-21 20:33] VITALS: BP 123/75
[2017-10-22 04:00] VITALS: BP 113/80
[2017-10-22] MEDS: PANTOPRAZOLE SODIUM 40 MG TABLET.DR PO SCH (06:10)
[2017-10-22 06:32] LABS: BASOPHILS # (AUTO) 0.1 K/uL (0.0-8.0); BASOPHILS % (AUTO) 0.7 % (0.0-2.0); EOSINOPHILS # (AUTO) 1.3 K/uL (0.0-0.7); EOSINOPHILS % (AUTO) 12.8 % (0.0-7.0); HEMOGLOBIN 12.2 g/dL (12.5-16.3); LYMPHOCYTES # (AUTO) 3.7 K/uL (20.0-40.0); LYMPHOCYTES % (AUTO) 35.8 % (20.5-51.5); MEAN CORPUSCULAR HEMOGLOBIN 28.8 uug (23.8-33.4); MEAN CORPUSCULAR HGB CONC 33 g/dL (32.5-36.3); MONOCYTES # (AUTO) 0.8 K/uL (2.0-10.0); MONOCYTES % (AUTO) 8.2 % (0.0-11.0); NEUTROPHILS # (AUTO) 4.4 K/uL (1.8-8.9); NEUTROPHILS % (AUTO) 42.5 % (38.5-71.5); PLATELET COUNT (AUTO) 259 K/uL (152-348); RED BLOOD CELL COUNT(AUTO) 4.25 MIL/uL (4.06-5.63); WHITE BLOOD COUNT (AUTO) 10.3 K/uL (3.6-10.2)
[2017-10-22 06:48] LABS: CARBON DIOXIDE 30 mmol/L (21-32); CHLORIDE 106 mmol/L (98-107); CREATININE 1.6 mg/dL (0.6-1.3); GLUCOSE 98 mg/dL (74-106); MAGNESIUM 2.1 mg/dL (1.8-2.4); PHOSPHOROUS 4.4 mg/dL (2.5-4.9); POTASSIUM 3.9 mmol/L (3.5-5.1); UREA NITROGEN, BLOOD 18 mg/dL (7-18)
[2017-10-22 07:55] VITALS: BP 129/72
[2017-10-22] MEDS: TRAMADOL HCL 50 MG TABLET PO SCH ×3 (07:58→17:00)
[2017-10-22] MEDS: DULOXETINE 60 MG CAPSULE.DR PO SCH (07:58)
[2017-10-22] MEDS: LACTOBACILLUS RHAMNOSUS GG 1 EACH CAPSULE PO SCH ×2 (07:58→20:18)
[2017-10-22] MEDS: SENNOSIDES 1 TABLET PO SCH (07:58)
[2017-10-22] MEDS: GABAPENTIN 400 MG CAPSULE PO SCH ×4 (07:59→20:18)
[2017-10-22] MEDS: ASPIRIN 81 MG TAB.CHEW PO SCH (07:59)
[2017-10-22] MEDS: AMLODIPINE 5 MG TABLET PO SCH (07:59)
[2017-10-22] MEDS: ISOSORBIDE MONONITRATE 30 MG TAB.SR.24H PO SCH (07:59)
[2017-10-22] MEDS: SULFAMETH/TRIMETH 800/160 MG TABLET PO SCH ×2 (07:59→20:18)
[2017-10-22 11:40] VITALS: BP 121/73
[2017-10-22] MEDS ORDERED: ATOR20TA PO (14:41)
[2017-10-22 16:05] VITALS: BP 131/75
[2017-10-22] MEDS: ATORVASTATIN 40 MG TABLET PO SCH (17:02)
[2017-10-22] MEDS: FLUCONAZOLE 200 MG/NS 100ML IV 200 MG in PREMIXED 1 EACH IV SCH (17:03)
[2017-10-22 20:10] VITALS: BP 120/77
[2017-10-23 04:02] VITALS: BP 116/88
[2017-10-23] MEDS: PANTOPRAZOLE SODIUM 40 MG TABLET.DR PO SCH (06:05)
[2017-10-23 06:40] LABS: BASOPHILS # (AUTO) 0.1 K/uL (0.0-8.0); BASOPHILS % (AUTO) 0.8 % (0.0-2.0); EOSINOPHILS # (AUTO) 1.2 K/uL (0.0-0.7); EOSINOPHILS % (AUTO) 10.1 % (0.0-7.0); HEMATOCRIT 37.8 % (36.7-47.1); HEMOGLOBIN 12.4 g/dL (12.5-16.3); LYMPHOCYTES # (AUTO) 3.5 K/uL (20.0-40.0); LYMPHOCYTES % (AUTO) 30.4 % (20.5-51.5); MEAN CORPUSCULAR HEMOGLOBIN 28.5 uug (23.8-33.4); MEAN CORPUSCULAR HGB CONC 33 g/dL (32.5-36.3); MEAN CORPUSCULAR VOLUME 86.8 fL (73.0-96.2); MONOCYTES # (AUTO) 0.7 K/uL (2.0-10.0); MONOCYTES % (AUTO) 6.5 % (0.0-11.0); NEUTROPHILS # (AUTO) 5.9 K/uL (1.8-8.9); NEUTROPHILS % (AUTO) 52.2 % (38.5-71.5); PLATELET COUNT (AUTO) 265 K/uL (152-348); RED BLOOD CELL COUNT(AUTO) 4.35 MIL/uL (4.06-5.63); WHITE BLOOD COUNT (AUTO) 11.4 K/uL (3.6-10.2)
[2017-10-23 06:49] LABS: ALANINE AMINOTRANSFERASE 27 U/L (16-63); ALKALINE PHOSPHATASE 69 U/L (50-136); ASPARTATE AMINOTRANSFERASE 23 U/L (15-37); BILIRUBIN,TOTAL 0.4 mg/dL (0.2-1.0); CARBON DIOXIDE 30 mmol/L (21-32); CHLORIDE 103 mmol/L (98-107); CREATININE 1.4 mg/dL (0.6-1.3); GLUCOSE 98 mg/dL (74-106); PHOSPHOROUS 3.6 mg/dL (2.5-4.9); POTASSIUM 4.1 mmol/L (3.5-5.1); TOTAL PROTEIN, SERUM 7.4 g/dL (6.4-8.2); UREA NITROGEN, BLOOD 16 mg/dL (7-18)
[2017-10-23 07:36] VITALS: BP 140/75
[2017-10-23] MEDS: GABAPENTIN 400 MG CAPSULE PO SCH ×4 (08:03→20:09)
[2017-10-23] MEDS: SENNOSIDES 1 TABLET PO SCH (08:04)
[2017-10-23] MEDS: AMLODIPINE 5 MG TABLET PO SCH (08:04)
[2017-10-23] MEDS: DULOXETINE 60 MG CAPSULE.DR PO SCH (08:04)
[2017-10-23] MEDS: ISOSORBIDE MONONITRATE 30 MG TAB.SR.24H PO SCH (08:04)
[2017-10-23] MEDS: ASPIRIN 81 MG TAB.CHEW PO SCH (08:04)
[2017-10-23] MEDS: LACTOBACILLUS RHAMNOSUS GG 1 EACH CAPSULE PO SCH ×2 (08:04→20:09)
[2017-10-23] MEDS: SULFAMETH/TRIMETH 800/160 MG TABLET PO SCH ×2 (08:05→20:09)
[2017-10-23] MEDS: TRAMADOL HCL 50 MG TABLET PO SCH ×3 (09:00→17:00)
[2017-10-23 11:46] VITALS: BP 121/80
[2017-10-23 15:49] VITALS: BP 123/74
[2017-10-23] MEDS: FLUCONAZOLE 200 MG/NS 100ML IV 200 MG in PREMIXED 1 EACH IV SCH (17:05)
[2017-10-23] MEDS: ATORVASTATIN 40 MG TABLET PO SCH (17:32)
[2017-10-23 20:26] VITALS: BP 127/83
[2017-10-24 04:00] VITALS: BP 138/82
[2017-10-24] MEDS: PANTOPRAZOLE SODIUM 40 MG TABLET.DR PO SCH (06:21)
[2017-10-24 08:11] VITALS: BP 127/79
[2017-10-24] MEDS: TRAMADOL HCL 50 MG TABLET PO SCH ×3 (09:37→17:09)
[2017-10-24] MEDS: SENNOSIDES 1 TABLET PO SCH (09:37)
[2017-10-24] MEDS: SULFAMETH/TRIMETH 800/160 MG TABLET PO SCH ×2 (09:37→20:09)
[2017-10-24] MEDS: DULOXETINE 60 MG CAPSULE.DR PO SCH (09:38)
[2017-10-24] MEDS: GABAPENTIN 400 MG CAPSULE PO SCH ×4 (09:38→20:09)
[2017-10-24] MEDS: ASPIRIN 81 MG TAB.CHEW PO SCH (09:38)
[2017-10-24] MEDS: AMLODIPINE 5 MG TABLET PO SCH (09:39)
[2017-10-24] MEDS: ISOSORBIDE MONONITRATE 30 MG TAB.SR.24H PO SCH (09:39)
[2017-10-24] MEDS: LACTOBACILLUS RHAMNOSUS GG 1 EACH CAPSULE PO SCH ×2 (09:39→20:09)
[2017-10-24 11:45] VITALS: BP 152/87
[2017-10-24 14:47] LABS: *BILIRUBIN,URIN NEGATIVE (NEGATIVE); *BLOOD, URINE Trace-intact (NEGATIVE); *CLARITY,URINE CLEAR (CLEAR); *COLOR,URINE YELLOW (YELLOW); *KETONES,URINE NEGATIVE (NEGATIVE); *PROTEIN,URINE NEGATIVE (NEGATIVE); *UROBILINOGEN,URINE 0.2 E.U./dl (NORMAL); LEUKOCYTE ESTERASE ,URINE NEGATIVE (NEGATIVE); NITRITE, URINE NEGATIVE (NEGATIVE); PH,URINE 6.5 (5.0-8.0); UGLUCOSE TRACE (NEGATIVE)
[2017-10-24 15:00] LABS: BACTERIA,URINE NONE SEEN /HPF (NONE SEEN); SQUAMOUS EPITHELIAL CELL,UR FEW /HPF (NONE SEEN); WBC,URINE 0-3 /HPF (0-3)
[2017-10-24 15:11] LABS: *CREATININE,URINE 66.5 mg/dL (30-125); *URINE TOTAL PROTEIN RANDOM 25.9 mg/dL (<150/24HR)
[2017-10-24 15:50] VITALS: BP 112/73
[2017-10-24] MEDS: FLUCONAZOLE 200 MG/NS 100ML IV 200 MG in PREMIXED 1 EACH IV SCH (17:09)
[2017-10-24] MEDS: ATORVASTATIN 40 MG TABLET PO SCH (17:09)
[2017-10-24 20:46] VITALS: BP 158/84
[2017-10-25 04:00] VITALS: BP 116/74
[2017-10-25] MEDS: PANTOPRAZOLE SODIUM 40 MG TABLET.DR PO SCH (06:16)
[2017-10-25 07:04] LABS: CARBON DIOXIDE 29 mmol/L (21-32); CHLORIDE 105 mmol/L (98-107); CREATININE 1.6 mg/dL (0.6-1.3); GLUCOSE 98 mg/dL (74-106); PHOSPHOROUS 4.1 mg/dL (2.5-4.9); POTASSIUM 4.1 mmol/L (3.5-5.1)
[2017-10-25 07:22] LABS: BASOPHILS # (AUTO) 0.1 K/uL (0.0-8.0); BASOPHILS % (AUTO) 0.7 % (0.0-2.0); EOSINOPHILS # (AUTO) 1.3 K/uL (0.0-0.7); EOSINOPHILS % (AUTO) 11.1 % (0.0-7.0); HEMATOCRIT 38.8 % (36.7-47.1); HEMOGLOBIN 12.8 g/dL (12.5-16.3); LYMPHOCYTES # (AUTO) 4.4 K/uL (20.0-40.0); LYMPHOCYTES % (AUTO) 36.3 % (20.5-51.5); MEAN CORPUSCULAR HEMOGLOBIN 28.8 uug (23.8-33.4); MEAN CORPUSCULAR HGB CONC 33 g/dL (32.5-36.3); MEAN CORPUSCULAR VOLUME 87.3 fL (73.0-96.2); MONOCYTES # (AUTO) 0.7 K/uL (2.0-10.0); NEUTROPHILS # (AUTO) 5.6 K/uL (1.8-8.9); NEUTROPHILS % (AUTO) 45.9 % (38.5-71.5); PLATELET COUNT (AUTO) 276 K/uL (152-348); RED BLOOD CELL COUNT(AUTO) 4.45 MIL/uL (4.06-5.63); WHITE BLOOD COUNT (AUTO) 12.1 K/uL (3.6-10.2)
[2017-10-25 07:39] LABS: UREA NITROGEN, BLOOD 21 mg/dL (7-18)
[2017-10-25] MEDS: ASPIRIN 81 MG TAB.CHEW PO SCH (09:55)
[2017-10-25] MEDS: DULOXETINE 60 MG CAPSULE.DR PO SCH (09:55)
[2017-10-25] MEDS: LACTOBACILLUS RHAMNOSUS GG 1 EACH CAPSULE PO SCH ×2 (09:55→20:19)
[2017-10-25] MEDS: SULFAMETH/TRIMETH 800/160 MG TABLET PO SCH ×2 (09:55→20:19)
[2017-10-25] MEDS: GABAPENTIN 400 MG CAPSULE PO SCH ×4 (09:56→20:19)
[2017-10-25] MEDS: ISOSORBIDE MONONITRATE 30 MG TAB.SR.24H PO SCH (09:56)
[2017-10-25] MEDS: AMLODIPINE 5 MG TABLET PO SCH (09:56)
[2017-10-25] MEDS: SENNOSIDES 1 TABLET PO SCH (09:56)
[2017-10-25] MEDS: TRAMADOL HCL 50 MG TABLET PO SCH ×3 (09:57→16:47)
[2017-10-25 11:09] VITALS: BP 128/79
[2017-10-25 15:01] VITALS: BP 132/64
[2017-10-25] MEDS: FLUCONAZOLE 200 MG/NS 100ML IV 200 MG in PREMIXED 1 EACH IV SCH (15:49)
[2017-10-25] MEDS: ATORVASTATIN 40 MG TABLET PO SCH (16:47)
[2017-10-25 20:11] VITALS: BP 121/87
[2017-10-25] MEDS: ACETAMINOPHEN 325 MG TABLET PO PRN (20:19)
[2017-10-26 04:34] VITALS: BP 119/80
[2017-10-26] MEDS: PANTOPRAZOLE SODIUM 40 MG TABLET.DR PO SCH (06:31)
[2017-10-26] MEDS: ASPIRIN 81 MG TAB.CHEW PO SCH (09:19)
[2017-10-26] MEDS: DULOXETINE 60 MG CAPSULE.DR PO SCH (09:20)
[2017-10-26] MEDS: LACTOBACILLUS RHAMNOSUS GG 1 EACH CAPSULE PO SCH ×2 (09:20→20:15)
[2017-10-26] MEDS: SULFAMETH/TRIMETH 800/160 MG TABLET PO SCH ×2 (09:20→20:15)
[2017-10-26] MEDS: GABAPENTIN 400 MG CAPSULE PO SCH ×4 (09:20→20:15)
[2017-10-26] MEDS: ISOSORBIDE MONONITRATE 30 MG TAB.SR.24H PO SCH (09:20)
[2017-10-26] MEDS: AMLODIPINE 5 MG TABLET PO SCH (09:21)
[2017-10-26] MEDS: SENNOSIDES 1 TABLET PO SCH (09:21)
[2017-10-26] MEDS: TRAMADOL HCL 50 MG TABLET PO SCH ×3 (09:21→16:31)
[2017-10-26 11:36] VITALS: BP 109/75
[2017-10-26] MEDS: TRIAMCINOLONE ACET 0.025% OINT 15 GM TUBE TP PRN (13:52)
[2017-10-26 15:30] VITALS: BP 108/69
[2017-10-26] MEDS: FLUCONAZOLE 200 MG/NS 100ML IV 200 MG in PREMIXED 1 EACH IV SCH (15:36)
[2017-10-26] MEDS: ATORVASTATIN 40 MG TABLET PO SCH (17:19)
[2017-10-26 19:58] VITALS: BP 103/64
[2017-10-27 04:28] VITALS: BP 115/88
[2017-10-27] MEDS: PANTOPRAZOLE SODIUM 40 MG TABLET.DR PO SCH (06:24)
[2017-10-27] MEDS: DULOXETINE 60 MG CAPSULE.DR PO SCH (08:44)
[2017-10-27] MEDS: SENNOSIDES 1 TABLET PO SCH (08:44)
[2017-10-27] MEDS: LACTOBACILLUS RHAMNOSUS GG 1 EACH CAPSULE PO SCH ×2 (08:44→20:53)
[2017-10-27] MEDS: GABAPENTIN 400 MG CAPSULE PO SCH ×4 (08:45→20:53)
[2017-10-27] MEDS: ISOSORBIDE MONONITRATE 30 MG TAB.SR.24H PO SCH (08:45)
[2017-10-27] MEDS: SULFAMETH/TRIMETH 800/160 MG TABLET PO SCH ×2 (08:45→20:53)
[2017-10-27] MEDS: TRAMADOL HCL 50 MG TABLET PO SCH ×3 (08:45→17:12)
[2017-10-27] MEDS: AMLODIPINE 5 MG TABLET PO SCH (08:46)
[2017-10-27] MEDS: ASPIRIN 81 MG TAB.CHEW PO SCH (08:46)
[2017-10-27 11:42] VITALS: BP 124/78
[2017-10-27] MEDS ORDERED: IV NORMAL SALINE 1000 ML BAG IV ONE (13:45)
[2017-10-27] MEDS: FLUCONAZOLE 200 MG/NS 100ML IV 200 MG in PREMIXED 1 EACH IV SCH (16:03)
[2017-10-27 16:05] VITALS: BP 104/64
[2017-10-27] MEDS: ATORVASTATIN 40 MG TABLET PO SCH (17:12)
[2017-10-27 20:06] VITALS: BP 131/80
== END 2017-10-27 21:46 | DRG 871 ==
LOC: ER 16:23 → MED 20:00
PROVIDERS: ADMIT Internal Medicine; ATTEND Internal Medicine
PROC: 0J993ZZ Drainage of Buttock Subcutaneous Tissue and Fascia, Percutaneous Approach (ICD-10-PCS; principal; 2017-10-12)
DX: A41.9 Sepsis, unspecified organism (principal); G92 Toxic encephalopathy; N17.0 Acute kidney failure with tubular necrosis; E44.0 Moderate protein-calorie malnutrition; E11.22 Type 2 diabetes mellitus with diabetic chronic kidney disease; D68.9 Coagulation defect, unspecified; I13.0 Hypertensive heart and chronic kidney disease with heart failure and stage 1 through stage 4 chronic kidney disease, or unspecified chronic kidney disease; I50.32 Chronic diastolic (congestive) heart failure; N39.0 Urinary tract infection, site not specified; L03.317 Cellulitis of buttock; I69.351 Hemiplegia and hemiparesis following cerebral infarction affecting right dominant side; R65.20 Severe sepsis without septic shock; G62.9 Polyneuropathy, unspecified; E11.40 Type 2 diabetes mellitus with diabetic neuropathy, unspecified; B86 Scabies; M89.9 Disorder of bone, unspecified; E83.42 Hypomagnesemia; B95.62 Methicillin resistant Staphylococcus aureus infection as the cause of diseases classified elsewhere; I69.320 Aphasia following cerebral infarction; Z79.82 Long term (current) use of aspirin; Z79.899 Other long term (current) drug therapy; F01.50 Vascular dementia, unspecified severity, without behavioral disturbance, psychotic disturbance, mood disturbance, and anxiety; Z68.25 Body mass index [BMI] 25.0-25.9, adult; Z75.1 Person awaiting admission to adequate facility elsewhere; Z91.14 Patient's other noncompliance with medication regimen; N18.9 Chronic kidney disease, unspecified; G89.4 Chronic pain syndrome; K21.9 Gastro-esophageal reflux disease without esophagitis; M19.90 Unspecified osteoarthritis, unspecified site; E11.65 Type 2 diabetes mellitus with hyperglycemia; E87.6 Hypokalemia; E78.5 Hyperlipidemia, unspecified; I25.10 Atherosclerotic heart disease of native coronary artery without angina pectoris; F41.9 Anxiety disorder, unspecified; F32.9 Major depressive disorder, single episode, unspecified; D64.9 Anemia, unspecified; Z91.19 Patient's noncompliance with other medical treatment and regimen
CPT/HCPCS: 36415; 70030-TC; 71045; 83605; 83735; 84100; 84156; 84300; 84443; 85025; 85730; 87040; 87070; 87077; 87086; 93005; 97110; 97116; 97530; A4217; A4663; C1758; J0692; J1450; J2270; J2543; J3370; J3475; J3480; J3490; J7030; J7040; J7050